=== PATIENT | male | born 1960 | race Caucasian/White ===

== ENCOUNTER 2018-10-25 23:28 | Emergency (ER) | payer OTHER ==
--- NOTE | 2018-10-26 01:22 | RADIOLOGY REPORT (SQ) ---
Right shoulder three view on 10/26/2018 at 12:57 AM CLINICAL INDICATION: Severe acute right shoulder pain COMPARISON: None FINDINGS: The AC joint is well aligned. The glenohumeral joint is well located. There are no fractures. IMPRESSION: No acute abnormality.
[2018-10-26] MEDS ORDERED: KETOROLAC TROMETHAMINE 60 MG/2 ML SDV IM ONE (01:53)
[2018-10-26] MEDS ORDERED: GABAPENTIN 300 MG CAPSULE PO ONE (01:53)
[2018-10-26] MEDS ORDERED: TRAMADOL HCL 50 MG TABLET PO ONE (01:53)
[2018-10-26] MEDS ORDERED: LIDOCAINE 5% (700 MG) TRANSDERMAL ADH..PATCH TP ONE (01:53)
--- NOTE | 2018-10-26 01:58 | ER Document Report ---
ED General - General Chief Complaint: Shoulder Pain Stated Complaint: SHOULDER PAIN Time Seen by Provider: 10/26/18 00:41 Notes: Patient is a 58-year-old male without chronic medical problems who presents with 36 hours of right shoulder pain as well as paresthesias in his right forearm and right hand. Pain is regarded as being severe, was gradual in onset, has been worsening since that time. Described as a throbbing, burning pain. States the pain is worsened by lying down and trying to sleep. Has tried ibuprofen and Tylenol with no improvement. Denies any known injury. No history of similar symptoms in the past. Has not seen his general physician regarding today's concerns. Denies any focal weakness or loss of sensation. He is right-hand dominant. Has a remote history of a cervical spine surgery without fusion. TRAVEL OUTSIDE OF THE [place] IN LAST 30 DAYS: No - Related Data Allergies/Adverse Reactions: No Known Allergies Allergy (Unverified 10/26/18 01:41) Past Medical History - General Information source: Patient - Social History Smoking Status: Current Every Day Smoker Chew tobacco use (# tins/day): No Frequency of alcohol use: None Drug Abuse: None Lives with: Alone Family History: Reviewed & Not Pertinent Patient has suicidal ideation: No Patient has homicidal ideation: No Renal/ Medical History: Denies: Hx Peritoneal Dialysis Past Surgical History: Reports: Hx Orthopedic Surgery - neck x 2 Review of Systems - Review of Systems Notes: Constitutional: Negative for fever. HENT: Negative for sore throat. Eyes: Negative for visual changes. Cardiovascular: Negative for chest pain. Respiratory: Negative for shortness of breath. Gastrointestinal: Negative for abdominal pain, vomiting or diarrhea. Genitourinary: Negative for dysuria. Musculoskeletal: Positive for right shoulder pain Skin: Negative for rash. Neurological: Negative for headaches, weakness or numbness. Positive for paresthesias of the right forearm and right hand 10 point ROS negative except as marked above and in HPI. Physical Exam - Vital signs Vitals: Temp Pulse Resp BP Pulse Ox 97.8 F 68 20 135/86 H 99 10/25/18 23:36 10/25/18 23:36 10/25/18 23:36 10/25/18 23:36 10/25/18 23:36 Interpretation: Normal Notes: PHYSICAL EXAMINATION: GENERAL: Well-appearing, well-nourished and in no acute distress. HEAD: Atraumatic, normocephalic. EYES: Pupils equal round and reactive to light, extraocular movements intact, sclera anicteric, conjunctiva are normal. ENT: nares patent, oropharynx clear without exudates. Moist mucous membranes. NECK: Normal range of motion, supple without lymphadenopathy, no midline cervical spine tenderness, step-offs or deformities. Mild pain on probation of the right trapezius. Pain with axial loading with the head tilted towards the right LUNGS: Breath sounds clear to auscultation bilaterally and equal. No wheezes rales or rhonchi. HEART: Regular rate and rhythm without murmurs ABDOMEN: Soft, nontender, normoactive bowel sounds. No guarding, no rebound. No masses appreciated. EXTREMITIES: Normal range of motion, no pitting or edema. No cyanosis. NEUROLOGICAL: RMU motor and sensory distribution is intact bilaterally including against resistance on motor testing. 5 out of 5 biceps and triceps strength bilaterally. PSYCH: Normal mood, normal affect. SKIN: Warm, Dry, normal turgor, no rashes or lesions noted. Course - Re-evaluation Re-evalutation: 10/26/18 01:55 Patient presents with 36 hours of pain in his right shoulder as well as paresthesias in his right forearm and hand. Has a history of cervical spine surgery. On exam no focal neurologic deficits. RMU motor and sensory distribution is intact bilaterally including against resistance on motor testing. X-ray of the right shoulder is normal. Patient has increased pain with tilting of the head toward the right with axial loading. Examination of the shoulder, trapezius and arm otherwise unremarkable without evidence of swelling, deformity or effusions. Suspect cervical nerve root impingement given history and exam. Very low clinical suspicion for ligamentous injury of the shoulder, skeletal injury, stroke, carotid artery dissection or alternative life-threatening pathology. Patient has been started on gabapentin, anti- inflammatories, tramadol. At this time will discharge with return precautions and follow-up recommendations. Verbal discharge instructions given a the bedside and opportunity for questions given. Medication warnings reviewed. Patient is in agreement with this plan and has verbalized understanding of return precautions and the need for primary care follow-up in the next 24-72 hours. - Vital Signs Vital signs: Temp Pulse Resp BP Pulse Ox 97.8 F 68 20 135/86 H 99 10/25/18 23:36 10/25/18 23:36 10/25/18 23:36 10/25/18 23:36 10/25/18 23:36 - Diagnostic Test Radiology reviewed: Image reviewed, Reports reviewed Radiology results interpreted by me: 10/26/18 01:56 Right shoulder x-ray: No acute fracture or dislocation Discharge - Discharge Clinical Impression: Cervical nerve root impingement Right shoulder pain Qualifiers: Chronicity: acute Qualified Code(s): M25.511 - Pain in right shoulder Condition: Good Disposition: HOME, SELF-CARE Additional Instructions: Your pain is related to impingement one of your cervical nerve roots and will take 6-8 weeks completely resolved. For your pain: Take ibuprofen 600 mg and acetaminophen 1000 mg every 6 hours together as needed for pain. If this does not control your pain you may take 50 mg of tramadol every 6 hours. Use gabapentin 300 mg 3 times daily. In addition to this, purchased the product that is sold [id number] cold Aspercreme with lidocaine. Apply to the affected area per bottle instructions. You should also apply heat to the area regularly using an electric heating plant pad. Return to the emergency department immediately if you develop weakness, loss of sensation, chest pain, shortness of breath, have worsening of your symptoms, or any other symptoms that are worrisome to you. Prescriptions: Tramadol HCl [Ultram] 50 mg PO Q6HP PRN #8 tablet PRN Reason: Gabapentin [Neurontin 300 mg Capsule] 300 mg PO Q8 #90 cap
[2018-10-26 02:56] VITALS: BP 132/88
== END 2018-10-26 02:30 | disposition home or self-care (01) ==
LOC: ER 23:28
DX: G54.2 Cervical root disorders, not elsewhere classified (principal); M25.511 Pain in right shoulder; R20.2 Paresthesia of skin; F17.200 Nicotine dependence, unspecified, uncomplicated
CPT/HCPCS: 99283; 96372; 73030; J1885

== ENCOUNTER 2018-11-02 21:34 | Emergency (ER) | payer OTHER ==
[2018-11-02 21:44] VITALS: BP 151/92
--- NOTE | 2018-11-02 23:17 | RADIOLOGY REPORT (SQ) ---
3 VIEWS OF THE RIGHT SHOULDER HISTORY: Shoulder pain. COMPARISON: 10/26/2018 FINDINGS: No acute fracture is seen. The joint spaces are preserved. The soft tissues are unremarkable. IMPRESSION: Unremarkable right shoulder radiographs.
[2018-11-03] MEDS ORDERED: MORPHINE SULFATE IR 15 MG TABLET PO ONE (00:13)
--- NOTE | 2018-11-03 00:13 | ER Document Report ---
ED General - General Chief Complaint: Shoulder Pain Stated Complaint: RIGHT SOULDER AND SIDE PAIN Time Seen by Provider: 11/02/18 22:44 [facility] Care Provider: [facility] [[facility]] - Follow up as needed Notes: Patient is a 58-year-old male with a past medical history of current everyday tobacco use who presents with ongoing right shoulder pain. Patient was seen partially 1 week ago by me the same symptoms. States that he has been using gabapentin, ibuprofen, Tylenol with moderate relief of the symptoms but states that they are often still so severe that he cannot sleep at night. Does describe the pain to his right shoulder as being severe, throbbing, constant pain worsened by any attempt at movement of the extremity. He states that he has been trying to get followed up at the [facility] but has not if been able to get an appointment. He denies any loss of sensation, motor weakness, chest pain, shortness of breath. States his symptoms are not different but they are not improving from when I last saw him. TRAVEL OUTSIDE OF THE [place] IN LAST 30 DAYS: No - Related Data Allergies/Adverse Reactions: No Known Allergies Allergy (Verified 11/02/18 21:36) Past Medical History - General Information source: Patient - Social History Smoking Status: Current Every Day Smoker Frequency of alcohol use: None Drug Abuse: None Lives with: Family Family History: Reviewed & Not Pertinent Patient has suicidal ideation: No Patient has homicidal ideation: No Renal/ Medical History: Denies: Hx Peritoneal Dialysis Past Surgical History: Reports: Hx Orthopedic Surgery - neck x 2 Review of Systems - Review of Systems Notes: Constitutional: Negative for fever. HENT: Negative for sore throat. Eyes: Negative for visual changes. Cardiovascular: Negative for chest pain. Respiratory: Negative for shortness of breath. Gastrointestinal: Negative for abdominal pain, vomiting or diarrhea. Genitourinary: Negative for dysuria. Musculoskeletal: Positive for right shoulder pain Skin: Negative for rash. Neurological: Negative for headaches, weakness or numbness. 10 point ROS negative except as marked above and in HPI. Physical Exam - Vital signs Vitals: Temp Pulse Resp BP Pulse Ox 98.4 F 65 20 151/92 H 96 11/02/18 21:43 11/02/18 21:43 11/02/18 21:43 11/02/18 21:43 11/02/18 21:43 Interpretation: Hypertensive Notes: PHYSICAL EXAMINATION: GENERAL: Appears moderately uncomfortable but in no acute distress HEAD: Atraumatic, normocephalic. EYES: Pupils equal round and reactive to light, extraocular movements intact, sclera anicteric, conjunctiva are normal. ENT: nares patent, oropharynx clear without exudates. Moist mucous membranes. NECK: Normal range of motion, supple without lymphadenopathy LUNGS: Breath sounds clear to auscultation bilaterally and equal. No wheezes rales or rhonchi. HEART: Regular rate and rhythm without murmurs ABDOMEN: Soft, nontender, normoactive bowel sounds. No guarding, no rebound. No masses appreciated. EXTREMITIES: Patient is unable to range the right shoulder above 90 degrees and has significant pain with elevation above 45 degrees. No obvious erythema, fluctuance or warmth to the joint. Extremity examination otherwise globally unremarkable. NEUROLOGICAL: RMU motor and sensory distribution is intact including against resistance bilaterally. 5 out of 5 biceps and triceps strength bilaterally. PSYCH: Normal mood, normal affect. SKIN: Warm, Dry, normal turgor, no rashes or lesions noted. Course - Re-evaluation Re-evalutation: 11/03/18 00:01 Patient presents with signs and symptoms most consistent with a cervical nerve root impingement likely at C6-7. I did see this patient approximately 1 week ago for the same and he states he has returned because his pain is not controlled, symptoms not improving and he has not been able to follow with his primary care doctor. The pain pattern continues to be consistent patient has severe pain in his right shoulder in the periscapular region, on the right trapezius radiating down the right upper extremity. I do not suspect ACS. The patient has no chest pain, no shortness of breath, no pleuritic pain. The pain is dramatically worsened by movement of the shoulder and neck. There is no visible swelling, deformity or erythema to the area. There is no symptomology to suggest a septic joint. X-ray continues to be without any evidence of fracture, effusion or subluxation. . On neurologic exam patient has 5 out of 5 biceps and triceps strength. RMU motor and sensory distribution including against resistance on motor testing is noted to be normal. 2+ radial pulse and capillary refill is less than 1 second in all digits. EKG likewise unremarkable. Patient has had improvement of symptoms after receiving analgesia here in the emergency department. Advised supportive pillow for sleep at night, have treated with NSAIDs, have given a small amount of oral morphine for nighttime until patient can follow-up with his primary doctor. At this time will discharge with return precautions and follow-up recommendations. Verbal discharge instructions given a the bedside and opportunity for questions given. Medication warnings reviewed. Patient is in agreement with this plan and has verbalized understanding of return precautions and the need for primary care follow-up in the next 24-72 hours. - Vital Signs Vital signs: Temp Pulse Resp BP Pulse Ox 98.4 F 65 20 151/92 H 96 11/02/18 21:43 11/02/18 21:43 11/02/18 21:43 11/02/18 21:43 11/02/18 21:43 - Diagnostic Test Radiology reviewed: Image reviewed, Reports reviewed Radiology results interpreted by me: 11/03/18 05:14 Right shoulder x-ray: No acute fracture or dislocation - EKG Interpretation by Me Additional EKG results interpreted by me: 11/03/18 05:14 Sinus rhythm, rate 60. No ST elevations or depressions. QTC is 404. Discharge - Discharge Clinical Impression: Cervical nerve root impingement Right shoulder pain Qualifiers: Chronicity: acute Qualified Code(s): M25.511 - Pain in right shoulder Condition: Good Disposition: HOME, SELF-CARE Additional Instructions: Your pain is related to impingement one of your cervical nerve roots and will take 6-8 weeks completely resolved. For your pain: Take ibuprofen 600 mg and acetaminophen 1000 mg every 6 hours together as needed for pain. If this does not control your pain you may take 15 mg of oral morphine every 4 hours as needed. Please be very careful about using the oral morphine and only use this for severe pain. In addition to this, purchased the product that is sold [id number] cold Aspercreme with lidocaine. Apply to the affected area per bottle instructions. You should also apply heat to the area regularly using an electric heating plant pad. Return to the emergency department immediately if you develop weakness, loss of sensation, chest pain, shortness of breath, have worsening of your symptoms, or any other symptoms that are worrisome to you. Prescriptions: Morphine Sulfate [Morphine Ir 15 mg Tablet] 15 mg PO Q8HP PRN #10 tablet PRN Reason: Referrals: [facility] [Primary [facility]] - Follow up as needed
--- NOTE | 2018-11-03 23:42 | EKG REPORT ---
SEVERITY:- OTHERWISE NORMAL ECG - SINUS RHYTHM LEFT AXIS DEVIATION : Confirmed by: Delmi Hooks 03-Nov-2018 23:41:51
== END 2018-11-03 00:31 | disposition home or self-care (01) ==
LOC: ER 21:34
DX: G54.2 Cervical root disorders, not elsewhere classified (principal); M25.511 Pain in right shoulder; F17.200 Nicotine dependence, unspecified, uncomplicated
CPT/HCPCS: 93005; 93010; 99284

== ENCOUNTER 2019-04-11 18:11 | Emergency (ER) | payer OTHER ==
[2019-04-11 18:30] VITALS: BP 142/98
== END 2019-04-11 19:44 | disposition left against medical advice (07) ==
LOC: ER 18:11
DX: Z53.21 Procedure and treatment not carried out due to patient leaving prior to being seen by health care provider (principal); M79.673 Pain in unspecified foot